=== PATIENT | female | born 1990 | race Two or more races ===

== ENCOUNTER 2020-06-26 14:23 | Outpatient (CLI) | payer OTHER ==
[~2020-06-26] VITALS: Ht 170.2 cm; Wt 54.9 kg
--- NOTE | 2020-06-26 16:00 | Consultation ---
DATE OF CONSULTATION: 06/26/2020 CONSULTING PHYSICIAN: Fran Rodrigues MD CHIEF COMPLAINT: Abdominal pain, bloating, gas, burping. PAST MEDICAL HISTORY: History of hemorrhoids. PAST SURGICAL HISTORY: Hemorrhoidectomy. MEDICATION: [facility]-3. FAMILY HISTORY: Grandmother had gastric CA. SOCIAL HISTORY: Patient denies any heavy alcohol use. She drinks 2 glasses of wine per week. Denies tobacco usage. Denies any IV drug abuse. ALLERGIES: No known drug allergies. REVIEW OF SYSTEMS: Positive for burping, epigastric on and off pain for a few minutes, improvement with eating, nausea, gas, and bloating. PHYSICAL EXAMINATION: VITAL SIGNS: Temperature 97.7, blood pressure 137/85, pulse 82, respirations 20. HEENT: Normocephalic and atraumatic. Sclerae anicteric. NECK: Supple. No evidence of obvious lymphadenopathy. CARDIOVASCULAR: Regular rate and rhythm. Plus S1-S2. LUNGS: Clear to auscultation bilaterally. ABDOMEN: Positive bowel sounds. Soft and nontender. No rebound. No guarding. No peritoneal sign. EXTREMITIES: No cyanosis, no clubbing, no edema. ASSESSMENT AND PLAN: This is a 30-year-old female with family history of gastric CA in grandmother. She complains of 5 years of epigastric abdominal pain and burping suspicious for either gastric ulceration, gastritis, or gastroesophageal reflux disease. For that, patient would need an endoscopy. We will try to get authorization and schedule her. In terms of her bloating and gas, we are going to start the patient on Align 1 tablet p.o. daily for two months and patient to follow after that. Fran Rodrigues M.D. DR: KT JOB#: [id number] CC:
[2020-06-27 07:39] VITALS: BP 137/85
[2020-06-27] MEDS ORDERED: OMEGA 3 1,0001 EACH PO (07:39)
== END 2020-06-26 16:23 | disposition home or self-care (01) ==
LOC: PAN 14:23
DX: R10.9 Unspecified abdominal pain (principal); R14.0 Abdominal distension (gaseous); R14.3 Flatulence; R10.13 Epigastric pain; R11.0 Nausea
CPT/HCPCS: G0463

== ENCOUNTER 2020-08-17 14:36 | Outpatient (CLI) | payer OTHER ==
[~2020-08-17 14:36] MED LIST: OMEGA 3 1,0001 EACH PO
== END 2020-08-17 16:36 | disposition home or self-care (01) ==
LOC: PAN 14:36
DX: R10.9 Unspecified abdominal pain (principal)
CPT/HCPCS: 99212